=== PATIENT | female | born 1970 | race Caucasian/White ===

== ENCOUNTER 2017-06-04 13:32 | Emergency (ER) | payer OTHER | END 2017-06-04 14:12 | disposition home or self-care (01) | LOC: ER 13:32 | DX: M54.16 Radiculopathy, lumbar region (principal) | CPT/HCPCS: 99283 ==

== ENCOUNTER 2017-09-05 21:21 | Emergency (ER) | payer OTHER ==
[2017-09-05 21:49] LABS: ADD MAN DIFF? NO
[2017-09-05 21:53] LABS: URINE HCG POC HCG NEGATIVE (Negative)
[2017-09-05 21:55] LABS: BASO # 0.1 x10^3/uL (0.0-0.2); BASO % 1 % (0-3); EOS # 0.3 x10^3/uL (0.0-0.7); EOS % 4 % (0-3); HEMATOCRIT 38.8 % (36.0-47.0); HEMOGLOBIN 13.7 g/dL (12.0-15.5); LYMPH # 3.9 x10^3/uL (1.0-4.8); LYMPH % 43 % (24-48); MEAN CORPUSCULAR HEMOGLOBIN 30 pg (25-35); MEAN CORPUSCULAR HGB CONC 35 g/dL (31-37); MEAN CORPUSCULAR VOLUME 86 fL (79-100); MONO # 0.7 x10^3/uL (0.0-1.1); MONO % 8 % (0-9); NEUT # 4.1 x10^3uL (1.8-7.7); NEUT % 45 % (31-73); PLATELET COUNT 364 x10^3/uL (140-400); RED BLOOD COUNT 4.54 x10^6/uL (3.50-5.40); RED CELL DISTRIBUTION WIDTH 14.1 % (11.5-14.5); WHITE BLOOD COUNT 9.2 x10^3/uL (4.0-11.0)
[2017-09-05 21:56] LABS: BILIRUBIN,URINE NEGATIVE (NEG); CLARITY,URINE CLEAR; COLOR,URINE YELLOW; GLUCOSE,URINE >=1000 mg/dL (NEG); NITRITE,URINE NEGATIVE (NEG); PH,URINE 5.5; PROTEIN,URINE NEGATIVE (NEG-TRACE); UROBILINOGEN,URINE 0.2 mg/dL (0.2 mg/dL)
[2017-09-05 21:59] LABS: NEG OBC UR NEG; POS OBC UR POS; U PREG PATIENT NEGATIVE (NEG)
[2017-09-05 22:02] LABS: BACTERIA,URINE 0 /HPF (0-FEW); RBC,URINE 0 /HPF (0-2); SQUAMOUS EPITHELIAL CELL,UR MOD /LPF
[2017-09-05 22:05] LABS: ANION GAP 8 (6-14); BLOOD UREA NITROGEN 20 mg/dL (7-20); CALCIUM 9.1 mg/dL (8.5-10.1); CARBON DIOXIDE 29 mmol/L (21-32); CHLORIDE 99 mmol/L (98-107); CREATININE 0.9 mg/dL (0.6-1.0); GLUCOSE 256 mg/dL (70-99); POTASSIUM 3.8 mmol/L (3.5-5.1); SODIUM 136 mmol/L (136-145)
[2017-09-05 22:08] LABS: ALBUMIN 3.7 g/dL (3.4-5.0); ALK PHOS 135 U/L (46-116); ALT (SGPT) 40 U/L (14-59); AST (SGOT) 19 U/L (15-37); DIRECT BILIRUBIN 0.1 mg/dL (0.0-0.2); LIPASE 225 U/L (73-393); TOTAL BILIRUBIN 0.3 mg/dL (0.2-1.0); TOTAL PROTEIN 8.3 g/dL (6.4-8.2)
[2017-09-05] MEDS: IOHEXOL 300 MG/ML 100ML VIAL. IV ×2 (22:27)
[2017-09-05] MEDS ORDERED: CONTRAST GIVEN MC (22:30)
[2017-09-05] MEDS ORDERED: CONTRAST GIVEN. MC (22:30)
[2017-09-05] MEDS: CIPROFLOXACIN HCL 250 MG TABLET. PO ×2 (23:20)
[2017-09-05] MEDS ORDERED: CIPROFLOXACIN HCL 250 MG TABLET. ×2 (23:22)
== END 2017-09-05 23:25 | disposition home or self-care (01) ==
LOC: ER 21:21
DX: R35.8 Other polyuria (principal); N39.0 Urinary tract infection, site not specified (principal); R10.9 Unspecified abdominal pain; R11.2 Nausea with vomiting, unspecified; E11.9 Type 2 diabetes mellitus without complications; I10 Essential (primary) hypertension; Z90.49 Acquired absence of other specified parts of digestive tract; Z98.51 Tubal ligation status
CPT/HCPCS: 36415; 74177; 80048; 80076; 81001; 81025; 83690; 84703; 85025; 99285-25; Q9967